=== PATIENT | male | born 1940 | race Caucasian/White ===

== ENCOUNTER 2020-05-29 14:02 | Emergency (ER) | payer MEDICARE ==
[2020-05-29] MEDS ORDERED: DOXYCYCLINE100 M3 PO (16:11)
== END 2020-05-29 16:35 | disposition home or self-care (01) ==
LOC: ED 14:02
DX: S80.921A Unspecified superficial injury of right lower leg, initial encounter (principal); L03.115 Cellulitis of right lower limb; W20.8XXA Other cause of strike by thrown, projected or falling object, initial encounter; Y93.89 Activity, other specified; Y92.89 Other specified places as the place of occurrence of the external cause; Y99.8 Other external cause status

== ENCOUNTER → 2020-05-31 | Outpatient (CLI) | payer MEDICARE ==
[~2020-05-31] MED LIST: COREG6.25 MG PO; Coumadin10 MG PO; DOXYCYCLINE100 M3 PO; LASIX40 MG PO; LIPITOR20 MG PO; LISINOPRIL20 MG PO; OMEPRAZOLE20 M2 PO; SEPTDS PO; WARFARIN SODIU2.5 MG PO
== END | disposition home or self-care (01) ==
LOC: US 11:00
PROVIDERS: ATTEND Physician Assistant Medical
DX: T14.90XA Injury, unspecified, initial encounter (principal); R60.0 Localized edema; X58.XXXA Exposure to other specified factors, initial encounter; Y93.89 Activity, other specified; Y92.89 Other specified places as the place of occurrence of the external cause; Y99.8 Other external cause status

== ENCOUNTER 2020-06-07 14:37 | Inpatient (IN) | payer MEDICARE ==
[~2020-06-07] VITALS: Ht 177.8 cm; Wt 119.4 kg
[~2020-06-07 14:37] MED LIST changes: -COREG6.25 MG PO; -Coumadin10 MG PO; -LASIX40 MG PO; -LIPITOR20 MG PO; -LISINOPRIL20 MG PO; -OMEPRAZOLE20 M2 PO; -SEPTDS PO; -WARFARIN SODIU2.5 MG PO
[2020-06-07 14:43] VITALS: BP 131/45
[2020-06-07 15:25] LABS: BASO # 0.1 10*3/uL (0.0-0.1); BASO % 0.5 % (0.0-1.0); EOS # 0.3 10*3/uL (0.0-0.4); EOS % 2.9 % (1.0-4.0); HEMATOCRIT 36.7 % (42.0-52.0); LYMPH # 3.4 10*3/uL (1.3-4.4); LYMPH % 33.4 % (27.0-41.0); MEAN CELL VOLUME 91.3 fl (80.0-94.0); MEAN CORPUSCULAR HGB 28.9 pg (27.0-31.0); MEAN CORPUSCULAR HGB CONC 31.6 g/dl (33.0-37.0); MEAN PLATELET VOLUME 9.9 fl (9.6-12.3); MONO # 0.9 10*3/uL (0.1-1.0); MONO % 8.9 % (3.0-9.0); NEUT # 5.5 10*3/uL (2.3-7.9); PLATELET COUNT AUTOMATED 330 10*3/uL (130-400); RED BLOOD COUNT 4.02 10*6/uL (4.50-5.90); RED CELL DISTRI WIDTH 13.2 % (0-14.5); WHITE BLOOD COUNT 10.1 10*3/uL (4.8-10.8)
[2020-06-07 15:39] LABS: ALBUMIN 2.7 gm/dl (3.1-4.5); CREATININE 2.27 mg/dL (0.70-1.30); POTASSIUM 4.2 mmol/L (3.5-5.1); TOTAL PROTEIN 7.2 gm/dL (6.4-8.2)
[2020-06-07 16:00] VITALS: BP 156/50
--- NOTE | 2020-06-07 17:18 | NUR ---
THE PATIENT WAS GIVEN A URINAL
[2020-06-07 19:31] VITALS: BP 165/60
[2020-06-07 20:00] VITALS: BP 156/50
--- NOTE | 2020-06-07 20:00 | NUR ---
A 80, admitted to , under the services of OLU Fisher DO with a diagnosis of CELLULITIS OF RIGHT LEG, RIGHT LEG WOUND, CONFUSION. Chief complaint is RIGHT LEG CELLULITIS. Patient arrived via wheel chair from [place]. Monitor applied. Initial assessment completed. Vital signs taken and recorded. OLU FISHER DO notified of admission to the unit. Orders received. See assessment for past medical history, medications and allergies. Patient and/or family oriented to unit. visitation policy reviewed. Clothing/patient valuable form completed. CHRISTINE ORELLANA
--- NOTE | 2020-06-07 20:55 | NUR ---
DR. SHEN'S ANSWERING SERVICE NOTIFIED OF CONSULT FOR RIGHT LOWER EXTREMITY INFECTION.
--- NOTE | 2020-06-07 21:26 | NUR ---
PATIENT MEDICATED WITH PERCOCET FOR COMPLAINTS OF RIGHT LEG PAIN. WILL MONITOR FOR EFFECTIVENESS.
--- NOTE | 2020-06-07 21:30 | NUR ---
PATIENT COMPLAINING OF IV HURTING IN RIGHT AC. NEW 22G INSERTED INTO RIGHT WRIST ON FIRST ATTEMPT WITHOUT DIFFICULTY. PATIENT TOLERATED WELL. WILL CONTINUE TO MONITOR.
[2020-06-07] MEDS ORDERED: LASIX40 MG PO (22:15)
--- NOTE | 2020-06-07 22:15 | NUR ---
PERCOCET EFFECTIVE. STATES HE IS FEELING A LITTLE BETTER.
[2020-06-07] MEDS ORDERED: COREG6.25 MG PO (22:16)
[2020-06-07] MEDS ORDERED: LISINOPRIL20 MG PO (22:16)
[2020-06-07] MEDS ORDERED: OMEPRAZOLE20 M2 PO (22:16)
[2020-06-07] MEDS ORDERED: Coumadin10 MG PO (22:17)
[2020-06-07] MEDS ORDERED: LIPITOR20 MG PO (22:17)
[2020-06-08] VITALS (9 sets, daily range): BP systolic 117–154; BP diastolic 50–87
--- NOTE | 2020-06-08 | NUR ---
PT PLACED ON BIPAP V3O. ROOM AIR. CPAP 8. HE SAYS HE WEARS A STEADY SLOW PRESSURE AT HOME. STATES IT FEELS GOOD AT THIS TIME
--- NOTE | 2020-06-08 05:44 | NUR ---
MEDICATED WITH PERCOCET FOR COMPLAINTS OF LOWER EXTREMITY PAIN. WILL MONITOR FOR EFFECTIVENESS.
[2020-06-08 06:29] LABS: BASO # 0.1 10*3/uL (0.0-0.1); BASO % 0.6 % (0.0-1.0); EOS # 0.4 10*3/uL (0.0-0.4); LYMPH # 4.2 10*3/uL (1.3-4.4); LYMPH % 38.9 % (27.0-41.0); MEAN CELL VOLUME 93.3 fl (80.0-94.0); MEAN CORPUSCULAR HGB 29.1 pg (27.0-31.0); MEAN CORPUSCULAR HGB CONC 31.1 g/dl (33.0-37.0); MEAN PLATELET VOLUME 9.8 fl (9.6-12.3); MONO % 9.3 % (3.0-9.0); NEUT # 5.1 10*3/uL (2.3-7.9); NEUT % 46.8 % (47.0-73.0); PLATELET COUNT AUTOMATED 305 10*3/uL (130-400); RED BLOOD COUNT 3.75 10*6/uL (4.50-5.90); RED CELL DISTRI WIDTH 13.3 % (0-14.5); WHITE BLOOD COUNT 10.9 10*3/uL (4.8-10.8)
--- NOTE | 2020-06-08 06:33 | NUR ---
PERCOCET EFFECTIVE. PATIENT RESTING IN BED WATCHING TV. NO SIGNS OR SYMPTOMS OF DISTRESS NOTED. RESPIRATION REGULAR ON ROOM AIR.
[2020-06-08 06:40] LABS: INTERNATIONAL NORM RATIO 1.9 (2.0-3.5)
[2020-06-08 06:43] LABS: ALBUMIN 2.5 gm/dl (3.1-4.5); CREATININE 1.98 mg/dL (0.70-1.30); FREE T4 1.03 ng/dl (0.76-1.46); POTASSIUM 4.7 mmol/L (3.5-5.1); TOTAL PROTEIN 6.7 gm/dL (6.4-8.2)
[2020-06-08 06:48] LABS: THYROID STIM HORMONE (HS) 1.61 uIU/ml (0.358-4.75)
--- NOTE | 2020-06-08 08:03 | NUR ---
Supervisor Fur Floor Worker in to talk to patient this a.m. Patient states He Lives at Home with his and Plans on Returning Home at discharge. There are No steps in the home, but 3 steps to get into the Home Physician: Dr. Carty [facility]: [facility] Home health services: Pt. requests Home Health Patient's level of ADLs: INDEPENDENT Patient has working utilities: YES DME: USES NON-WHEELED WALKER AT HOME TO AMBULATE Follow-up physician's appointment after d/c: PER HOSPITALIST OFFICE Does patient want to access PORTAL?: DECLINES Discharge plan PT. STATES HE WOULD LIKE TO RETURN HOME WITH HIS AT DISCHARGE AND ARRANGE FOR HOME SERVICES. DECLINES SNF. SPOKE WITH VIA TELEPHONE THIS A.M. WHO ALSO WOULD LIKE FOR PT. TO RETURN HOME AT DISCHARGE. CURT CHERRY LPN
--- NOTE | 2020-06-08 15:04 | NUR ---
PHYSICAL THERAPY Physical Therapy evaluation completed on 5E with full evaluation to follow. Moderate complexity skilled PT evaluation per chart review and evaluation, [id number]. Recommend physical therapy per plan of care and SNF vs home health with 24hr care and assist pending progression upon discharge. Thank you for this referral. Cely Gonzalez,PT,DPT
--- NOTE | 2020-06-08 15:05 | NUR ---
Occupational Therapy evaluation completed on five with full evaluation to follow. Recommend occupational therapy per plan of care and SNF upon discharge. Thank you for this referral. Trinidad Hays OTR/L
--- NOTE | 2020-06-08 23:56 | NUR ---
PATIENT MEDICATED WITH PERCOCET FOR COMPLAINTS OF RIGHT LEG PAIN. WILL MONITOR FOR EFFECTIVENESS.
[2020-06-09] VITALS: BP 111/91
--- NOTE | 2020-06-09 00:45 | NUR ---
PERCOCET EFFECTIVE AT THIS TIME. PATIENT IN BED SLEEPING. NO SIGNS OR SYMPTOMS OF DISTRESS NOTED.
--- NOTE | 2020-06-09 05:48 | NUR ---
MEDICATED WITH PERCOCET FOR COMPLAINTS OF RIGHT LEG PAIN. WILL CONTINUE TO MONITOR.
[2020-06-09 07:01] LABS: BASO % 0.4 % (0.0-1.0); EOS # 0.4 10*3/uL (0.0-0.4); EOS % 3.7 % (1.0-4.0); HEMATOCRIT 34.6 % (42.0-52.0); LYMPH # 3.7 10*3/uL (1.3-4.4); LYMPH % 36.1 % (27.0-41.0); MEAN CELL VOLUME 92.5 fl (80.0-94.0); MEAN CORPUSCULAR HGB 28.6 pg (27.0-31.0); MEAN CORPUSCULAR HGB CONC 30.9 g/dl (33.0-37.0); MEAN PLATELET VOLUME 9.9 fl (9.6-12.3); MONO # 0.8 10*3/uL (0.1-1.0); MONO % 8.2 % (3.0-9.0); NEUT # 5.3 10*3/uL (2.3-7.9); NEUT % 51.3 % (47.0-73.0); PLATELET COUNT AUTOMATED 321 10*3/uL (130-400); RED BLOOD COUNT 3.74 10*6/uL (4.50-5.90); RED CELL DISTRI WIDTH 13.2 % (0-14.5); WHITE BLOOD COUNT 10.2 10*3/uL (4.8-10.8)
[2020-06-09 07:30] LABS: CREATININE 1.82 mg/dL (0.70-1.30); POTASSIUM 4.3 mmol/L (3.5-5.1)
[2020-06-09 08:00] VITALS: BP 129/86
[2020-06-09 08:25] LABS: INTERNATIONAL NORM RATIO 1.7 (2.0-3.5)
--- NOTE | 2020-06-09 09:10 | NUR ---
OT NOTE Attempted to see pt this A.M. for OT session and upon arrival pt was eating his breakfast. Will check back at a later time and continue with rec D/C plan to SNF. ISATU Lewis/[place]
--- NOTE | 2020-06-09 09:12 | NUR ---
PHYSICAL THERAPY PATIENT WAS EATING BREAKFAST AT 09:10 AM. WILL CHECK BACK LATER WITH PATIENT. DANNIE DOYLE VOLUNTEER SPECIALIST
--- NOTE | 2020-06-09 11:40 | NUR ---
OT NOTE Pt was seen this A.M. 1:1 for 20 minute OT session. Upon arrival pt was supine in bed. Pt identified by name and and had complaints of 3/10 R foot pain. Pt presented to therapy with wound vac to RLE which remained in place throughout the entire session. Pt was unable to recall his NWb to RLE. Pt was re-educated on NWB status. Pt transferred supine to sit EOB with SBA and use of bed rail for UE support. Sit to stand completed from bed level with CGA and use of w/w for UE support. Pt was educated on proper hand placement for increased I and improved technique. Pt required verbal prompts for maintaining NWB to RLE due to being aprox 50% compliant. Challenged pt's static standing tolerance needed for increased I in self care tasks and functional transfers. Pt was able to tolerate aprox 3 minutes at a time before sitting due to pain in his RLE. Pt then completed sit to stand from bed level with CGA and use of w/w followed by standing pivot from the EOB <> bedside commode with CGA and use of w/w. Pt was aprox 50% compliant with NWB to RLE. After a seated rest break pt completed functional mobility to the bathroom and back with CGA and use of w/w again requiring constant verbal prompts due to being non compliant with NWB. Pt then transferred back into bed sit to supine with SBA. There he was left with call light in hand, tray table in place, and bed alarm activated for safety. Continue with rec D/C plan to SNF. SUPA Lewis
--- NOTE | 2020-06-09 11:42 | NUR ---
PHYSICAL THERAPY Patient presented to therapy in supine in bed with head of bed elevated and bed alarm on. Patient reports 3 /10 pain level in the R LE. Patient gives informed consent for treatment. Patient was identified by name and on wristband. Patient is NWB on the R LE. Patient has a wound vac on the R LE. Patient performed supine < > sitting on EOB with SBA. Patient stood at Walker for 2 attempts with the 1st attempt being 1 minute and then the 2nd atempt being a total of 3 minutes time. Patient STS from EOB the 2 nd time with SBA and verbal cues for hand placement. Patient ambulated with CGA using the Wh Walker for 15' x 1 maintaining the NWB on the R LE about 50% of the time. Patient was given verbal and visual education on how to maintain the NWB on the R LE. Patient has the wound vac in the R LE. Patient transferred back to supine in bed with SBA. Patient scooted himself up into the bed himself. Patient was left in supine in bed with head of bed elevated and bed alarm on. Patientwas 1:1 with this BUSINESS TEACHER for 23 minutes total DANNIE DOYLE BUSINESS TEACHER
[2020-06-09 12:00] VITALS: BP 134/80
--- NOTE | 2020-06-09 12:37 | NUR ---
Spoke with Pt. Manisha at great Length Concerning Recommendations for SNF. Pt. is adamant that Pt. will go Home and that She has 24 Hour Care in the Home. Her Daughters and Granddaughters can assist. Advised that her Has a Wound Vac applied and will go home with one. voiced understanding and states that "We will manage and My daughters will help". Requested Home Health. Notified Nurse Director for [facility] [place]. Call Placed to [facility] to Check Service Area due to Pt. residing in [facility].
--- NOTE | 2020-06-09 13:24 | NUR ---
Call Placed to [facility]. Out of Service Area for Pt. Home. Call Placed to [facility]. Pt. insurance out of network. Call placed to [facility]. They will review referral and return call if able to accept Pt. faxed referral to [phone].
--- NOTE | 2020-06-09 13:50 | NUR ---
Spoke to [facility] regarding home wound vac. Informed the podiatry resident completed the [facility] wound vac paperwork but the attending physician needs to sign it. The physicians are currently in the [place] office. Faxed wound vac paperwork to the [facility] [place] office at [phone].
--- NOTE | 2020-06-09 14:35 | NUR ---
Received signed [facility] wound vac paperwork from [facility]. Faxed to [facility] along with clinical. Awaiting response.
--- NOTE | 2020-06-09 15:51 | NUR ---
OCCUPATIONAL THERAPY CO-SIGN I approve of the Occupational Therapy notes written above. TROY GAFFNEY, OTR/L
[2020-06-09 16:00] VITALS: BP 126/87
[2020-06-09 20:00] VITALS: BP 152/56; BP 157/68
--- NOTE | 2020-06-09 23:25 | NUR ---
Pt placed on V30 CPAP 10. Room air. Alarms on and audible.
[2020-06-10] VITALS: BP 162/72
[2020-06-10 06:45] LABS: BASO # 0.1 10*3/uL (0.0-0.1); BASO % 0.6 % (0.0-1.0); EOS # 0.5 10*3/uL (0.0-0.4); EOS % 5.1 % (1.0-4.0); HEMATOCRIT 35.6 % (42.0-52.0); LYMPH # 4.3 10*3/uL (1.3-4.4); LYMPH % 40.7 % (27.0-41.0); MEAN CELL VOLUME 93.4 fl (80.0-94.0); MEAN CORPUSCULAR HGB 29.1 pg (27.0-31.0); MEAN CORPUSCULAR HGB CONC 31.2 g/dl (33.0-37.0); MEAN PLATELET VOLUME 10.1 fl (9.6-12.3); MONO # 0.8 10*3/uL (0.1-1.0); MONO % 7.4 % (3.0-9.0); NEUT # 4.9 10*3/uL (2.3-7.9); NEUT % 45.9 % (47.0-73.0); PLATELET COUNT AUTOMATED 332 10*3/uL (130-400); RED BLOOD COUNT 3.81 10*6/uL (4.50-5.90); WHITE BLOOD COUNT 10.6 10*3/uL (4.8-10.8)
[2020-06-10 07:13] LABS: CREATININE 1.78 mg/dL (0.70-1.30); POTASSIUM 4.7 mmol/L (3.5-5.1)
[2020-06-10 07:38] LABS: INTERNATIONAL NORM RATIO 1.7 (2.0-3.5)
[2020-06-10 08:00] VITALS: BP 152/50
--- NOTE | 2020-06-10 08:46 | NUR ---
Spoke to Ella at [facility] regarding wound vac delivery. She states the delivery should be here by 11am but they have not been able to reach the patient. She states delivery opens in 15 minutes and she will return call to for exact timing of delivery and to speak to the patient. Awaiting return call.
--- NOTE | 2020-06-10 08:47 | NUR ---
[facility] to follow Patient at Home. Family to assist with 24 hour Care. Wound Vac is ordered and to be delivered to [facility]. Cely Farr Nurse Parachute Inspector is working on Wound Vac orders.
--- NOTE | 2020-06-10 08:53 | NUR ---
OT NOTE Pt was seen this A.M. 1:1 for 15 minute OT session. Upon arrival pt was supine in bed. Pt identified by name and and had complaints of pain in his RLE which he did not rate on 0-10 pain scale. Prior to start of activity pt was able to self recall and verbalize his NWB to RLE precautions. Pt presented to therapy with wound vac to RLE which remained in place throughout the entire session. Pt transferred supine to sit EOB with SBA and use of bed rail for UE support. Pt completed sit to stand from bed level with CGA and use of w/w. Verbal prompts provided for pt to maintain NWB to RLE due to being non compliant, pt stated "I hear you" and would then laugh. Functional mobility completed into the bathroom with CGA and use of w/w while being 100% NON compliant with NWB to RLE. There he transferred on/off standard commode with CGA and use of grab bar. Throughout all tasks pt was given verbal prompts to maintain NWB to RLE and pt continued to state "I know but this is how I do it." Functional mobility completed back to the EOB with CGA and use of w/w. No other standing tasks completed at this time due to pt being non compliant with weight bearing status. Pt then transferred back into bed with SBA. There he was left with call light in hand, tray table in place, and bed alarm activated for safety. Continue with rec D/C plan to SNF. SUPA Lewis
--- NOTE | 2020-06-10 09:17 | NUR ---
Received call from Soila at [facility] regarding delivery. Delivery is set for today and CM should be receiving a call to set up a specific delivery time. Awaiting return call.
--- NOTE | 2020-06-10 10:30 | NUR ---
Call Placed to Pt. Manisha and Advised her Of Concerns expressed during MDT meeting about safety at home with 24 hour Care, wound vac, Ambulating. Advised that Dr. Simms requested for Pt. and the Caregivers to come to the Hospital and Try and Ambulate Patient with Walker and Wound Vac with Non-Weight Bearing Status. Wound Vac is Pending Delivery. Physical Therapy has expressed Concerns about Pt. being non-Compliant with Non-Weight Bearing Status. Notified Porcelain Enameling Supervisor Macarena Barrera that Pt. and Caregiver is coming to demonstrate Safety and Were advised to stop at the Principal Product Manager.
[2020-06-10 12:00] VITALS: BP 143/70
--- NOTE | 2020-06-10 12:04 | NUR ---
Family is here. Assisted them to the Room and Notified Nurse.
[2020-06-10 12:11] LABS: ACID FAST SPEC PROCESSING Tissue Grinding (.)
--- NOTE | 2020-06-10 12:19 | NUR ---
PHYSICAL THERAPY Patient presented to therapy at 08:42 AM and patient's head of bed was elevated and bed alarm was on. Patient reports no pain. Patient is NWB on R LE with a wound vac. Patient has no catheter, spO2, or IVs at this time. Patient gives informed consent for treatment. Patient was identified by name and on wristband. Patient performed supine < > sitting on EOB with SBA. Patient sat on EOB with SBA. Patient completed STS < > EOB with CGA - MIN A X 1 with verbal cues for pushing off the bed with hands. Patient ambulated 15' x 1 with CGA, MAINTAINING 50% WT BEARING ON THE R LE and ignoring the verbal commands from 2 therapists to maintain and be compliant with the NWB on the R LE. Patient STS < > from low chair with SBA. Patient ambulated again maintaining the NWB on the R LE only 50% with Wh Walker and SBA for 40' x 1 with no increased pain. Patient again ignored the therapists commands to maintain the NWB on the R LE during gait. Patient sat on EOB and performed LE ther ex 2 x 10 reps each including the LAQs, Marches, heel/toe raises and hip abduction for strengthening the LEs. Patient completed sititng on EOB to supine in bed with SBA. Patient was left in supine in bed with head of bed elevated and bed alarm on. Patient was 1:1 with this MANAGER MEDICAL DEVICE for 23 minutes total. ISATU SOLIS IS PRESENT WITNESS TO THIS TREATMENT. Patient's family later came in in the morning at about 11:50 AM. Thet requested Physcial and Occupational therapists COME UP TO ROOM AND DEMONSTRATE HOW PATIENT TRANSFERS AND AMBULATES. Patient supine > sitting on EOB with SBA. Patient ambulated with Wh Walker and Close Supervision with for 40' x 1 maintaining the NWB on the R LE successfully with his urging him to keep the R LE up and no wt on it. Patient did not comply this morning with NWB on the R LE. Patient did comply wit hthe NWB on the R LE at 11:55 AM because his was there encouraging him on. Patient was 1:1 with this MANAGER MEDICAL DEVICE for another 12 minutes total. DANNIE DOYLE MANAGER MEDICAL DEVICE
--- NOTE | 2020-06-10 12:30 | NUR ---
Spoke with Nurse Garcia on the 5th Floor. Therapy was in the room and Assisted the with getting Pt. out of Bed to use the Walker and Managing with Wound Vac. Pt. and Family did very well and is safe to discharge Home with Home Health. Notified Hospitalist Nurse [place] who will Notify Dr. Simms that pt. can discharge Today and Home Health can see Pt. tommorow after Wound Vac Applied By Podiatry. Nurse calling Resident curbstone setter for Podiatry to Apply [employer] Wound VAC. Spoke with Cely at [facility] and Advised of Discharge Plans. remains in Hospital in Pt. Room.
--- NOTE | 2020-06-10 12:43 | NUR ---
OT NOTE Pt was seen this P.M. 1:1 for OT session and upon arrival pt was supine in bed with family at bedside. Pt transferred supine to sit EOB with SBA. Pt was again educated on NWB to RLE. Pt transferred sit to stand from bed level with CGA and use of w/w. Pt was not follow NWB when instrucated by therapist however when pt's gave instructions pt was 100% compliant. FUnctional mobility completed to the bedside commode with CGA while maintaining NWB. Pt transferred on/off bedside commode with CGA and use of w/w. Functional mobility completed back to the EOB with CGA while maintaining NWB. Pt was left sitting upright on the EOB with call light in hand, tray table in place, and family at bedside. Continue with POC as able. ISATU Lewis/[place]
--- NOTE | 2020-06-10 14:30 | NUR ---
OCCUPATIONAL THERAPY CO-SIGN I approve of the Occupational Therapy notes written above. TROY GAFFNEY, OTR/L
--- NOTE | 2020-06-10 14:40 | NUR ---
PHYSICAL THERAPY CO-SIGN I approve of the Physical Therapy notes written above. TEO FOY PT,DPT
[2020-06-10 16:00] VITALS: BP 147/54
--- NOTE | 2020-06-10 19:15 | NUR ---
REPORT RECEIVED. PT WATCHING TV. NO COMPLAINTS. IV INFUSING WITHOUT DIFFICULTY. WOUND VAC IN PLACE. CALL LIGHT IN REACH
[2020-06-10 20:00] VITALS: BP 180/48
--- NOTE | 2020-06-10 21:30 | NUR ---
IN TO SEE PT. PT SLEEPING. MEDS GIVEN. NO COMPLAINTS.
--- NOTE | 2020-06-10 22:43 | NUR ---
PT PLACED ON 10 OF CPAP ON THE V30 FOR THE NIGHT. MIRIAN. WELL. ALARMS ON AND AUDIBLE
[2020-06-11] VITALS: BP 135/45
--- NOTE | 2020-06-11 03:00 | NUR ---
IVF INFUSING WITHOUT DIFFICULTY. NO S/S OF DISTRESS. PT ASLEEP
[2020-06-11 06:47] LABS: CREATININE 1.73 mg/dL (0.70-1.30); POTASSIUM 4.2 mmol/L (3.5-5.1)
[2020-06-11 08:00] VITALS: BP 121/52
[2020-06-11 09:17] LABS: INTERNATIONAL NORM RATIO 1.8 (2.0-3.5)
--- NOTE | 2020-06-11 10:39 | NUR ---
PHYSICAL THERAPY Patient seen this am 1:1 for therapy visit and was relaxing supine in bed upon therapist arrival. Patient identified by name / and was initially joined by Dr Carbajal for routine visit. Patient presented with R LE wound vac, reporting mild 3/10 foot pain which increases during all standing activities to approx 7/10 as stated by patient. Patient educated on importance of maintaining NWB status on R LE prior to transfering supine to sit EOB with MIN A x 1. Patient needed a minute or so to collect himself, then completed sit to stand transfer, CGA, use of wh walker standing support. Patient needed v/c to maintain NWB status, R LE, then ambulated 15'x 2 to bathroom, CGA, wh walker, demonstrating 3 pt, bunny hop gait pattern. Patient also completed safe toilet transfer with use of R side grab bar, while maintaining 100% compliance with NWB status throughout entire treatment session. Patient received additional v/c to slow down his gait donald as he has tendency to go too fast at times. Patient returned to supine in bed with increased fatigue / SOB and remained with call light, tray table, telephone, bed alarm for safety. Will continue per POC as tolerated, total treatment time 17 minutes. Adán Powell, MARKETING RESEARCH COORDINATOR
[2020-06-11 12:00] VITALS: BP 144/68
[2020-06-11] MEDS ORDERED: Coumadin10 MG PO (12:09)
[2020-06-11] MEDS ORDERED: SEPTDS PO (12:09)
[2020-06-11] MEDS ORDERED: WARFARIN SODIU2.5 MG PO (12:09)
--- NOTE | 2020-06-11 13:59 | NUR ---
Discharge instructions reviewed with patient/family. Patient receptive and verbalizes understanding. Follow-up care arranged. Written instructions given to patient/family, IV REMOVED, WOUND VAC AND WOUND VAC SUPPLIES SENT WITH PATIENT, NON MONITORED, GAVE WRITTEN PERSCRIPTIONS, LEFT VIA W/C. SARAH LEA
--- NOTE | 2020-06-13 08:05 | NUR ---
PHYSICAL THERAPY CO-SIGN I approve of the Physical Therapy notes written above. TEO FOY PT, DPT
--- NOTE | 2020-06-13 08:46 | NUR ---
PAPER STEAMER RECEIVED CALL FROM [facility]. INSURANCE ONLY RECEIVED FIRST DAY OF CLINICAL. STAY WAS DENIED. INSURANCE WILL DO A RECONSIDER ONCE CLINICAL INFORMATION HAS BEEN RECEIVED. PAPER STEAMER FAXED CLINICAL INFORMATION TO [facility] AT [phone] REF# [id number]. CLINICAL FAXED.
== END 2020-06-11 13:59 | disposition home health service (06) | DRG 579 ==
LOC: ED 14:37 → EDHOLD 18:02 → 5E 18:02
PROVIDERS: Chiropractor Orthopedic; Internal Medicine; Physician Assistant; ADMIT Internal Medicine; ATTEND Internal Medicine
PROC: 0J9N0ZZ Drainage of Right Lower Leg Subcutaneous Tissue and Fascia, Open Approach (ICD-10-PCS; principal; 2020-06-08)
PROC: 5A09357 Assistance with Respiratory Ventilation, Less than 24 Consecutive Hours, Continuous Positive Airway Pressure (ICD-10-PCS; 2020-06-10)
PROC: 5A09357 Assistance with Respiratory Ventilation, Less than 24 Consecutive Hours, Continuous Positive Airway Pressure (ICD-10-PCS; 2020-06-11)
DX: L03.115 Cellulitis of right lower limb (principal); N17.0 Acute kidney failure with tubular necrosis; G93.41 Metabolic encephalopathy; E43 Unspecified severe protein-calorie malnutrition; E87.2 Acidosis; D68.59 Other primary thrombophilia; L02.415 Cutaneous abscess of right lower limb; D64.9 Anemia, unspecified; E11.65 Type 2 diabetes mellitus with hyperglycemia; E78.5 Hyperlipidemia, unspecified; I10 Essential (primary) hypertension; R70.0 Elevated erythrocyte sedimentation rate; M72.9 Fibroblastic disorder, unspecified; E11.51 Type 2 diabetes mellitus with diabetic peripheral angiopathy without gangrene; W19.XXXA Unspecified fall, initial encounter; S80.11XA Contusion of right lower leg, initial encounter; Y93.89 Activity, other specified; Y92.89 Other specified places as the place of occurrence of the external cause; Y99.8 Other external cause status; Z86.718 Personal history of other venous thrombosis and embolism; Z96.653 Presence of artificial knee joint, bilateral; Z79.899 Other long term (current) drug therapy; Z79.01 Long term (current) use of anticoagulants; Z68.37 Body mass index [BMI] 37.0-37.9, adult

== ENCOUNTER → 2020-09-21 | Outpatient (CLI) | payer MEDICARE ==
[~2020-09-21] MED LIST changes: +COREG6.25 MG PO; +Coumadin10 MG PO; +LASIX40 MG PO; +LIPITOR20 MG PO; +LISINOPRIL20 MG PO; +OMEPRAZOLE20 M2 PO; +SEPTDS PO; +WARFARIN SODIU2.5 MG PO
== END | disposition home or self-care (01) ==
LOC: US 11:59
PROVIDERS: ATTEND Podiatrist Foot & Ankle Surgery
DX: R59.0 Localized enlarged lymph nodes (principal); R60.0 Localized edema; M79.661 Pain in right lower leg